=== PATIENT | male | born 1965 | race Caucasian/White ===

== ENCOUNTER → 2017-03-09 | Outpatient (CLI) | payer BC ==
[~2017-03-09] MED LIST: HUMALOG100 UNIT/2 SQ; LANTUS100 UNIT/M SUBQ; METFORMIN HCL500 MG; PROTONIX40 M1 PO; ZPAK PO
[2017-03-09 12:44] LABS: CALCIUM 9.4 mg/dL (8.5-10.1); POTASSIUM 3.9 mmol/L (3.5-5.1)
== END ==
LOC: CV 11:24
PROVIDERS: Anesthesiology
DX: Z01.812 Encounter for preprocedural laboratory examination (principal)

== ENCOUNTER 2017-11-16 12:21 | Inpatient (IN) | payer BC ==
[~2017-11-16] VITALS: Ht 175.3 cm; Wt 81.2 kg
--- NOTE | ~2017-11-16 | EKG ---
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
[2017-11-16 12:27] VITALS: BP 164/86
[2017-11-16 12:51] LABS: ABSOLUTE NEUTROPHILS 8.8 thou/uL (1.4-8.2); BASOPHILS 0.7 % (0.0-2.0); EOSINOPHILS 0.1 % (0.0-3.0); HEMATOCRIT 46.5 % (42.0-52.0); HEMOGLOBIN 16.1 gm/dL (14.0-18.0); LYMPHOCYTES 8.2 % (24.0-44.0); MCH 32.2 pg (26.0-34.0); MCHC 34.5 g/dL (28.0-37.0); MCV 93.2 fL (80.0-100.0); MONOCYTES 3.8 % (1.0-8.0); PLATELET COUNT 231 thou/uL (150-400); POLYS 87.2 % (36.0-66.0); RBC 4.99 mil/uL (4.50-6.00); RDW 13.3 % (10.5-14.5); WBC 10.1 thou/uL (4.0-11.0)
[2017-11-16 12:55] LABS: ANION GAP 10 mmol/L (7-16); BUN 12 mg/dL (7-18); CALCIUM 9.4 mg/dL (8.5-10.1); CHLORIDE 96 mmol/L (98-107); CO2 26 mmol/L (21-32); CREATININE 0.9 mg/dL (0.7-1.3); GLUCOSE 302 mg/dL (74-106); POTASSIUM 4.2 mmol/L (3.5-5.1); SODIUM 132 mmol/L (136-145)
[2017-11-16 13:03] LABS: ALBUMIN 3.3 g/dL (3.4-5.0); DIRECT BILIRUBIN 0.2 mg/dL (<0.1-0.3); LIPASE 52 U/L (73-393); SGOT 18 U/L (15-37); SGPT 30 U/L (30-65); TOTAL BILIRUBIN 0.6 mg/dL (<0.1-1.0); TOTAL PROTEIN 7.7 g/dL (6.4-8.2); TROPONIN-I < 0.04 ng/mL (<0.06)
[2017-11-16 13:27] LABS: LARGE PLATELETS FEW; PLATELET ESTIMATE NORMAL
[2017-11-16 14:04] VITALS: BP 159/82
[2017-11-16] MEDS ORDERED: LANTUS100 UNIT/M SUBQ (14:45)
[2017-11-16 14:47] LABS: URINE BILIRUBIN NEGATIVE (Negative); URINE BLOOD 1+ (Negative); URINE CLARITY CLEAR; URINE COLOR YELLOW; URINE GLUCOSE-RANDOM* 3+ (Negative); URINE KETONES 3+ (Negative); URINE LEUKOCYTES NEGATIVE (Negative); URINE NITRITE NEGATIVE (Negative); URINE PROTEIN (DIPSTICK) 2+ (Negative); URINE SPECIFIC GRAVITY >= 1.030 (1.005-1.035); URINE UROBILINOGEN 0.2 E.U./dl (0.2-1.0)
[2017-11-16 14:55] LABS: SQUAMOUS 0-3 Few /LPF (0-3)
[2017-11-16 14:56] LABS: BACTERIA None Seen /HPF (None Seen); CRYSTALS None Seen /LPF (None Seen); HYALINE CASTS 0-3 Few /LPF (None Seen); MUCUS 0-3 Light strn/LPF (None Seen); URINE RBC 0-2 Rare /HPF (0-2); URINE WBC 0-5 Rare /HPF (0-5)
[2017-11-16 15:07] VITALS: BP 156/86
[2017-11-16 15:30] VITALS: BP 168/87
[2017-11-16 19:06] VITALS: BP 138/81
[2017-11-17 05:13] VITALS: BP 111/57; BP 156/83
[2017-11-17 08:35] VITALS: BP 159/86
[2017-11-17] MEDS ORDERED: REGLAN 5 MG TAB5 MG PO (10:27)
[2017-11-17] MEDS ORDERED: NOVOLOG100 UNIT/1 SUBQ (10:27)
[2017-11-17] MEDS ORDERED: LANTUS100 UNIT/M SUBQ (10:28)
[2017-11-17 11:03] VITALS: BP 159/86
== END 2017-11-17 13:18 | disposition home or self-care (01) | DRG 74 ==
LOC: ER 12:21 → EROBS 13:56 → 4S 13:56
PROVIDERS: Emergency Medicine
DX: E10.43 Type 1 diabetes mellitus with diabetic autonomic (poly)neuropathy (principal); E10.65 Type 1 diabetes mellitus with hyperglycemia; E86.0 Dehydration; K31.84 Gastroparesis; K21.9 Gastro-esophageal reflux disease without esophagitis; F17.210 Nicotine dependence, cigarettes, uncomplicated; Z79.4 Long term (current) use of insulin; Z79.84 Long term (current) use of oral hypoglycemic drugs; Z79.899 Other long term (current) drug therapy
CPT/HCPCS: 10195

== ENCOUNTER → 2018-08-15 | Outpatient (CLI) | payer BC ==
[~2018-08-15] MED LIST changes: +NOVOLOG100 UNIT/1 SUBQ; +REGLAN 5 MG TAB5 MG PO
== END ==
LOC: ULTRA 16:10
DX: I65.23 Occlusion and stenosis of bilateral carotid arteries (principal)